=== PATIENT | male | born 1975 | race Caucasian/White ===

== ENCOUNTER 2025-01-20 02:25 | Inpatient (IN) | payer SELFPAY ==
[2025-01-20] VITALS (20 sets, daily range): BP systolic 95–137; BP diastolic 70–103; PULSE 79–140; RESP 20–24; TEMP 36.3–37.1; O2SAT 94–98; BMI 39.4; BMI 39.5
--- NOTE | 2025-01-20 | ECHO_ITS ---
Patient Info Name: Rangel Ulrich Age: 49 years : 1975 Gender: Male Ht: 72 in Wt: 291 lbs BSA: 2.64 m2 HR: 95 bpm BP: 121 / 97 mmHg Heart Rhythm: Atrial Fibrillation Technical Quality: Poor Exam Date: 01/20/2025 12:02 PM Exam Location: Echo Lab Patient Status: Outpatient Admit Date: 01/20/2025 Staff Ordering Physician: Emile Monaco MD Cutter Brake Lining: Joseph Agustin RDCS Attending Provider: Ericka Soliz MD Exam Type: CA echo dop color flow w con Study Info Indications - CHEST PRESSURE Complete two-dimensional, color flow and Doppler transthoracic echocardiogram is performed with contrast to opacify the left ventricle and to improve the deliniation of the left ventricle endocardial borders. Contrast/Agitated Saline Contrast/Ag. Saline: Definity Amount: 2.00 ml Existing IV Access: Yes Reason for Poor Study: poor echocardiographic windows Summary 1. Definity contrast administered improved wall motion interpretation. 2. Left ventricular chamber dimension is severely enlarged. 3. Left ventricular systolic function is severely reduced, estimated at 20-25%. 4. There is mild concentric increased left ventricular wall thickness. 5. The left ventricular diastolic function is abnormal. 6. E/e' 11 is mildly elevated. 7. Atrial fibrillation. 8. Right ventricular chamber dimension is moderately enlarged. 9. Right ventricular systolic function is at least moderately reduced and with abnormal TAPSE 1.1 cm.. 10. Left atrial chamber dimension is moderately enlarged. 11. Right atrial chamber dimension is mildly enlarged. 12. There is mild to moderate mitral valve regurgitation. 13. Mild pulmonary hypertension, estimated pulmonary arterial systolic pressure is 46 mmHg. 14. The aortic root size at the sinus of Valsalva is borderline dilated at 4.1 cm. 15. Dilated inferior vena cava with >50% collapse upon inspiration consistent with elevated right atrial pressure, 10 mmHg. Left Ventricle E/e' 11 is mildly elevated. Atrial fibrillation. Definity contrast administered improved wall motion interpretation. Left ventricular chamber dimension is severely enlarged. Left ventricular systolic function is severely reduced, estimated at 20-25%. There is mild concentric increased left ventricular wall thickness. The left ventricular diastolic function is abnormal. Right Ventricle Right ventricular systolic function is at least moderately reduced and with abnormal TAPSE 1.1 cm. Right ventricular chamber dimension is moderately enlarged. Left Atria Left atrial chamber dimension is moderately enlarged. Right Atria Right atrial chamber dimension is mildly enlarged. Aortic Valve The aortic valve is probable trileaflet. There is no aortic valve stenosis. There is no aortic valve regurgitation. Pulmonic Valve There is no pulmonic regurgitation. Mitral Valve There is no mitral valve stenosis. There is mild to moderate mitral valve regurgitation. Tricuspid Valve There is no tricuspid valve regurgitation. Mild pulmonary hypertension, estimated pulmonary arterial systolic pressure is 46 mmHg. Pericardium/Pleural There is no pericardial effusion. Inferior Vena Cava Dilated inferior vena cava with >50% collapse upon inspiration consistent with elevated right atrial pressure, 10 mmHg. Aorta The aortic root size at the sinus of Valsalva is borderline dilated at 4.1 cm. Left Ventricular Outflow Tract Name Value Normal LVOT 2D LVOT Diameter 2.37 cm LVOT Doppler LVOT Peak Velocity 87.33 cm/s LVOT Peak Gradient 1 mmHg LVOT Mean Gradient 0 mmHg LVOT VTI 14.81 cm LVOT VTI/AV VTI Ratio 0.71 LVOT Stroke Volume 65.52 ml LVOT CO 1.50 l/min LVOT CI 0.57 L/min/m2 Pulmonic Valve Name Value Normal RVOT Doppler RVOT Peak Gradient 1 mmHg PV Doppler PV Peak Velocity 51.14 cm/s PV Peak Gradient 1 mmHg Mitral Valve Name Value Normal MV Doppler MV Peak Gradient 4 mmHg MV Mean Gradient 2 mmHg MV Decel Allen 826.18 cm/s2 MV PHT 0 s MV Area (PHT) 6.04 cm2 4.00-5.00 MV Area (Cont Eq VTI) 2.18 cm2 MV Diastolic Function MV E Peak Velocity 103.77 cm/s MV Decel Time 0 s MV Annular TDI MV Septal e' Velocity 6.38 cm/s >=8.00 MV E/e' (Septal) 16.26 <=8.00 MV Lateral e' Velocity 11.06 cm/s >=10.00 MV E/e' (Lateral) 9.38 <=8.00 MV e' Average 8.72 MV E/e' (Average) 12.82 Tricuspid Valve Name Value Normal TV Regurgitation Doppler TR Peak Velocity 301.11 cm/s TR Peak Gradient 36 mmHg Estimated PAP/RSVP RA Pressure 10 mmHg <=5 PA Systolic Pressure 46 mmHg <36 RV Systolic Pressure 46 mmHg <36 TV Annular TDI TV Lateral Mattie s' Velocity 5.74 cm/s 9.50-18.70 Aorta Name Value Normal Ascending Aorta Ao Root Diameter (MM) 4.44 cm Ao Root Diam Index (MM) 1.68 cm/m2 Ao [place] Diameter 2.95 cm 2.60-3.20 Aortic Valve Name Value Normal AV Doppler AV Peak Velocity 124.66 cm/s AV Peak Gradient 6 mmHg AV Mean Gradient 4 mmHg AV VTI 20.83 cm AV Area (Cont Eq VTI) 3.15 cm2 >=3.00 AV Area (Cont Eq Eric) 3.10 cm2 AV V1/V2 Ratio 0.70 AV Regurgitation 2D LVOT Area 4.42 cm2 Ventricles Name Value Normal LV Dimensions 2D/MM IVS Diastolic Thickness (2D) 1.40 cm 0.60-1.00 LVID Diastole (2D) 5.81 cm 4.20-5.80 LVIW Diastolic Thickness (2D) 1.57 cm 0.60-1.00 LVID Systole (2D) 5.22 cm 2.50-4.00 LVOT Diameter 2.37 cm LV Mass (2D Cubed) 400.51 g 88.00-224.00 LV Mass Index (2D Cubed) 0.02 g/cm2 0.00-0.01 Relative Wall Thickness (2D) 0.54 LV Fractional Shortening/Ejection Fraction 2D/MM LV Fractional Shortening (2D) 10 % 25-43 LV EF (2D Teicholz) 22 % 52-72 LV Diastolic Volume (4C MOD) 177.48 ml LV EF (4C MOD) 42 % LV Diastolic Volume (2C MOD) 166.74 ml LV EF (2C MOD) 33 % LV Diastolic Volume (BP MOD) 176.14 ml 62.00-150.00 LV Diastolic Volume Index (BP MOD) 0.07 l/m2 0.03-0.07 LV Systolic Volume (BP MOD) 107.94 ml 21.00-61.00 LV Systolic Volume Index (BP MOD) 0.04 l/m2 0.01-0.03 LV EF (BP MOD) 39 % 52-72 LV Diastolic Length (4C) 9.01 cm LV Systolic Length (4C) 7.79 cm LV Stroke Volume (4C MOD) 73.86 ml Atria Name Value Normal LA Dimensions LA Dimension (MM) 5.43 cm 3.00-4.10 LA Volume (4C A-L) 79.66 ml LA Volume (BP A-L) 105.98 ml RA Dimensions RA Area (4C) 30.99 cm2 <=18.00 Report Signatures
--- NOTE | ~2025-01-20 | XR_ITS ---
EXAMINATION: XR chest 1V portable DATE: 01/21/2025 12:57 INDICATION: Shortness of breath and chest pain TECHNIQUE: frontal view of the chest was obtained. COMPARISON: Chest radiograph dated 01/20/2025 FINDINGS: The lungs are clear with no focal airspace opacities, pulmonary edema, pleural effusion or pneumothor ax. Borderline heart size accounting for AP technique. IMPRESSION: 1. No acute cardiopulmonary disease. 2. Borderline heart size accounting for AP technique. Reviewed, dictated and finalized at location A. DISCHARGE
--- NOTE | ~2025-01-20 | XR_ITS ---
Portable chest x-ray Comparison: None Clinical History: Cough Findings: Lungs are clear, without focal consolidation or pleural effusion. Cardiomediastinal silho uette is prominent. Bones and soft tissues are unremarkable. Impression: Clear lungs. Probable cardiomegaly. Reviewed, dictated and finalized at [facility]. MILL SET UP OPERATOR Impression: Clear lungs. Probable cardiomegaly.
[2025-01-20] MEDS: dilTIAZem HCl INJ 25 MG/5 ML VIAL 20 MG IV PUSH (03:40)
[2025-01-20] MEDS: dilTIAZem 100 MG/100 ML 100 MG/100 ML BAG IV CONT (03:40)
[2025-01-20 05:16] LABS: INR 1.3; Partial Thromboplastin Time 31.4 Seconds (22.3-36.8); Prothrombin Time 16.2 Seconds (11.1-14.7)
[2025-01-20 05:17] LABS: Alanine Aminotransferase 39 U/L (6-50); Albumin Level 4.2 g/dL (3.5-5.1); Alkaline Phosphatase 65 U/L (38-126); Anion Gap 12 mmol/L (4-12); Aspartate Amino Transferase 40 U/L (17-59); Bilirubin,Total 1.8 mg/dL (0.2-1.3); Blood Urea Nitrogen 25 mg/dL (9-20); Calcium 9.3 mg/dL (8.4-10.2); Carbon Dioxide 22 mmol/L (22-30); Chloride 104 mmol/L (98-107); Estimated Glomerular Filt Rate > 60; Glucose 97 mg/dL (65-110); Potassium 4.3 mmol/L (3.4-5.0); Sodium 138 mmol/L (137-145); Troponin I 0.013 ng/mL (0.000-0.034)
[2025-01-20 05:23] LABS: Influenza A QL RT-PCR Negative (Negative); Influenza B QL RT-PCR Negative (Negative); RSV RNA, RT-PCR Negative (Negative); SARS-CoV-2 RNA PCR Negative (Negative)
[2025-01-20 05:24] LABS: Bacteria Urine None Seen /hpf; Mucus Urine Present /lpf; Need Manual Microscopic Reviewed; Non Pathogenic Casts 0-2; RBC Urine 0-2 /hpf (0-2); Squamous Epithelial Cell Urine None Seen /hpf (Few); WBC Urine 0-5 /hpf (0-3)
[2025-01-20 05:25] LABS: Add Urine Microscopic? YES
[2025-01-20 05:26] LABS: Appearance Urine Clear (Clear); Bilirubin Urine 1+ (Negative); Blood Urine Negative (Negative); Color Urine Yellow (Yellow); Glucose Urine UA Negative (Negative); Ketones Urine Negative (Negative); Leukocyte Esterase Ur Negative LEU/UL (Negative); Nitrate Urine Negative (Negative); Protein Urine 2+ mg/dL (Negative); Specific Grav Ur >= 1.030 (1.001-1.035); pH Urine 5.5 (5.0-9.0)
[2025-01-20 05:27] LABS: Basophils Percent Auto 0.4 % (0.2-1.2); Eosinophils Percent Auto 0.2 % (0-4.4); Hematocrit 43.2 % (42.0-52.0); Hemoglobin 14.2 g/dL (14.0-18.0); Immature Granulocyte Absolute 0.02 K/mm3 (0.00-0.031); Immature Granulocyte Percent A 0.2 % (0-0.5); Lymphocytes Absolute Auto 2.17 K/mm3 (0.9-3.2); Lymphocytes Percent Auto 22.8 % (18.3-44.2); Mean Corpuscular HGB Conc 32.9 g/dl (32-36); Mean Corpuscular Hemoglobin 30.3 pg (26-34); Mean Corpuscular Volume 92.3 fl (80-100); Mean Platelet Volume 10.3 fl (7.4-10.4); Monocytes Percent Auto 10.9 % (2.6-8.5); Neutrophils Absolute Auto 6.2 K/mm3 (1.3-6.7); Neutrophils Percent Auto 65.5 % (45.5-73.1); Platelet Count Result 252 k/mm3 (150-375); Red Blood Count 4.68 M/mm3 (4.6-6.20); Red Cell Distribution Width 13.8 % (11.5-14.5); White Blood Count 9.5 K/mm3 (4.5-10.0)
--- NOTE | 2025-01-20 06:42 | ADMGEN ---
This patient, Rangel Ulrich, was admitted to IMU Room 206-02. Patient/family oriented to hospital policies and general routines including ID bracelet, bed and alarms, visiting hours, pain management, procedures, bathroom and other care routines, personal items, smoking policy, room service/diet, and visiting hours. Information on how to activate the Rapid Response Team has been discussed. Patient/Family are encouraged to report perceived risks to care and to ask questions if they do not understand what they are told or what they should do.
[2025-01-20] MEDS: dilTIAZem 100 MG/100 ML 100 MG/100 ML BAG 15 MG IV CONT (10:35)
--- NOTE | 2025-01-20 11:10 | ECG_ITS ---
Test Date: 2025-01-20 11:28:03 Measurements Intervals [place] Rate: 93 P: 0 VT: 0 QRS: -63 QRSD: 109 T: 153 QT: 391 QTc: 486 Interpretive Statements ATRIAL FIBRILLATION LEFT ANTERIOR FASCICULAR BLOCK BORDERLINE T WAVE ABNORMALITY- DIFFUSE LEADS BASELINE ARTIFACT- V4-V5 ABNORMAL ECG No previous ECG available for comparison Electronically Signed On 01-20-2025 11:31:33 [employer]CHO[employer] CHILD CARE ATTENDANT by Ranjit Mackey D.O.
[2025-01-20 11:35] LABS: Hematocrit 42.3 % (42.0-52.0); Hemoglobin 13.8 g/dL (14.0-18.0); Mean Corpuscular HGB Conc 32.6 g/dl (32-36); Mean Corpuscular Hemoglobin 30.1 pg (26-34); Mean Corpuscular Volume 92.2 fl (80-100); Mean Platelet Volume 10.3 fl (7.4-10.4); Platelet Count Result 238 k/mm3 (150-375); Red Blood Count 4.59 M/mm3 (4.6-6.20); Red Cell Distribution Width 13.8 % (11.5-14.5)
[2025-01-20 11:52] LABS: Hemoglobin A1C 5.8 % (<5.7)
[2025-01-20 11:52] LABS: Alanine Aminotransferase 36 U/L (6-50); Albumin Level 3.7 g/dL (3.5-5.1); Alkaline Phosphatase 60 U/L (38-126); Anion Gap 9 mmol/L (4-12); Aspartate Amino Transferase 37 U/L (17-59); Bilirubin,Total 1.6 mg/dL (0.2-1.3); Blood Urea Nitrogen 26 mg/dL (9-20); Calcium 8.8 mg/dL (8.4-10.2); Carbon Dioxide 21 mmol/L (22-30); Chloride 106 mmol/L (98-107); Cholesterol 113 mg/dL (0-200); Estimated CRCL calculation 118 ml/min; Estimated Glomerular Filt Rate > 60; Glucose 117 mg/dL (65-110); HDL Direct 23 mg/dL; Magnesium 2.1 mg/dL (1.6-2.3); Phosphorus 3.2 mg/dL (2.5-4.5); Potassium 4.3 mmol/L (3.4-5.0); Sodium 136 mmol/L (137-145); Triglycerides 105 mg/dL (<150)
[2025-01-20 12:01] LABS: Troponin I 0.012 ng/mL (0.000-0.034)
[2025-01-20 12:03] LABS: LDL Cholesterol Direct 73 mg/dL
--- NOTE | 2025-01-20 12:31 | PM.CNCAR ---
Assessment and Plan Assessment and plan (1) PAF (paroxysmal atrial fibrillation): Code(s): I48.0 - Paroxysmal atrial fibrillation Status: Acute Assessment and Plan: New onset. Probably due to untreated JOSEPH and hypertension. [id number] 1. Rate controlled on Diltiazem. Start Aspirin 325 mg daily. Stop Diltiazem drip and start Diltiazem 60 mg PO every 6 hours. Obtain echo. If HR stable, may go home and f/u with me in 1 week. (2) Hypertension: Code(s): I10 - Essential (primary) hypertension Status: Acute Assessment and Plan: Going on Diltiazem. (3) JOSEPH (obstructive sleep apnea): Code(s): G47.33 - Obstructive sleep apnea (adult) (pediatric) Status: Acute Assessment and Plan: Will need outpatient sleep study. History of Present Illness History of Present Illness Consult date/time: 01/20/25 12:31 Reason For Visit: SOB Narrative: 49 yr old presents to ER with sob. He has a history of untreated JOSEPH from 12 years ago, hypertension. Reports he noted about 7-10 days ago feeling more sob and weak. He was found to be in atrial fibrillation with RVR. Normally he can walk a mile but recently only short distances due to OSMAN. Denies chest pain, edema, dizziness, palpitations. Review of Systems Review of Systems: All systems reviewed & are unremarkable except as noted in HPI and below Constitutional: Constitutional: Reports as per HPI, Denies chills, Reports fatigue and Denies fever(s) Cardiovascular: Cardiovascular: Reports as per HPI, Denies chest pain and Denies irregular heart rhythm Respiratory: Respiratory: Reports as per HPI and Reports dyspnea Gastrointestinal: Gastrointestinal: Reports as per HPI and Denies abdominal pain Genitourinary: Genitourinary: Reports as per HPI and Denies dysuria Musculoskeletal: Musculoskeletal: Reports as per HPI Neurologic: Reports as per HPI, Denies dizziness and Denies syncope COUNTS INCLUDE 234 BEDS AT THE [facility] Social History Social History Smoking status: Never smoker Alcohol intake: never Substance use: never Substance use type: does not use Do You Feel Safe in your Home?: Yes Lack of Transportation: No Lack of Food: Never True Current Housing: I Have Housing Concerned About Future Housing: No Difficulty Paying Gas/Electric Bills: No Difficulty Paying for Meds: No Currently Unemployed: No Education: High School Diploma/GED Difficulty w/ Childcare or Family Care: No Spiritual care concerns: No Meds Home Medications and Allergies Home Medications ?Medication ?Instructions ?Recorded ?Confirmed ?Type No Home Medications 01/20/25 01/20/25 History Allergies Allergy/AdvReac Type Severity Reaction Status Date / Time No Known Allergies Allergy Verified 01/20/25 05:54 Vital Signs Vital Signs - 24 hr 01/20/25 03:40 01/20/25 04:10 01/20/25 05:27 Temperature Pulse Rate 140 H 122 H 115 H Respiratory Rate Blood Pressure 134/101 H 137/99 H 121/103 H Pulse Oximetry Oxygen Delivery 01/20/25 05:30 01/20/25 05:31 01/20/25 05:41 Temperature 98.8 F Pulse Rate 127 H 110 H Respiratory Rate 20 Blood Pressure 123/97 H Pulse Oximetry 97 97 Oxygen Delivery Room Air Room Air 01/20/25 06:37 01/20/25 07:52 01/20/25 10:35 Temperature 97.4 F L 97.5 F L Pulse Rate 99 95 84 Respiratory Rate 20 24 H Blood Pressure 102/84 121/97 H Pulse Oximetry 94 95 Oxygen Delivery 01/20/25 12:00 Temperature 97.4 F L Pulse Rate 101 H Respiratory Rate 20 Blood Pressure 109/91 H Pulse Oximetry 95 Oxygen Delivery Results Labs and Meds 01/20/25 11:26 01/20/25 11:26 Lab results: Cardiac Enzymes 01/20/25 01/20/25 Range/Units 02:18 11:26 AST 40 37 (17-59) U/L Troponin I 0.013 0.012 (0.000-0.034) ng/mL Coagulation 01/20/25 Range/Units 02:18 PT 16.2 H (11.1-14.7) Seconds APTT 31.4 (22.3-36.8) Seconds Lipids 01/20/25 Range/Units 11:26 Triglycerides 105 (<150) mg/dL Cholesterol 113 (0-200) mg/dL CBC 01/20/25 01/20/25 Range/Units 02:18 11:26 WBC 9.5 9.0 (4.5-10.0) K/mm3 RBC 4.68 4.59 L (4.6-6.20) M/mm3 Hgb 14.2 13.8 L (14.0-18.0) g/dL Hct 43.2 42.3 (42.0-52.0) % Plt Count 252 238 (150-375) k/mm3 Lymph # (Auto) 2.17 (0.9-3.2) K/mm3 [place] # (Auto) 1.0 H (0.1-0.6) K/mm3 Eos # (Auto) 0.0 (0-0.3) K/mm3 Baso # (Auto) 0.0 (0.0-0.1) K/mm3 Comprehensive Metabolic Panel 01/20/25 01/20/25 Range/Units 02:18 11:26 Sodium 138 136 L (137-145) mmol/L Potassium 4.3 4.3 (3.4-5.0) mmol/L Chloride 104 106 (98-107) mmol/L Carbon Dioxide 22 21 L (22-30) mmol/L BUN 25 H 26 H (9-20) mg/dL Creatinine 1.12 0.94 (0.7-1.3) mg/dL Glucose 97 117 H (65-110) mg/dL Calcium 9.3 8.8 (8.4-10.2) mg/dL AST 40 37 (17-59) U/L ALT 39 36 (6-50) U/L Alkaline Phosphatase 65 60 (38-126) U/L Total Protein 7.0 7.0 (6.3-8.2) g/dL Albumin 4.2 3.7 (3.5-5.1) g/dL Intake and Output 01/19/25 01/20/25 01/20/25 23:59 07:59 15:59 Intake Total 15.3 360 Balance 15.3 360 Intake: IV 15.3 dilTIAZem 100 MG/100 ML 100 mg 15.3 In 100 ml @ 5 MG/HR 5 mls/hr IV CONT .Q20H STA Rx#:[id number] Oral 360 Patient Weight 01/20/25 23:59 Weight 132 kg
[2025-01-20] MEDS: PERFLUTREN LIPID MICROSPHERES 1.5 ML VIAL DILUTED TO 10 ML TOTAL VOLUME IV PUSH (12:35)
[2025-01-20] MEDS: ASPIRIN 325 MG ENTERIC TABLET PO (12:52)
--- NOTE | 2025-01-20 13:00 | IVDEFINITY ---
Prior to administration of IV Definity the patient was educated on the risks and benefits of the imaging enhancing agent including potential adverse side effects. The patient verbalized understanding. Allergies were verified. No exclusion criteria were identified and at least one of the following inclusion criteria were met: 1) physician request, 2) patient technically difficult to image (per the [place] [employer]chocardi[employer] guidelines of two or more segments not discernable within the apical view), or 3) questionable left ventricular function. ?
--- NOTE | 2025-01-20 13:17 | PM.IMHP ---
H&P: HPI History of Present Illness Date/Time: 01/20/25 13:17 Chief Complaint: Chest congestion Narrative: Patient is a 49-year-old male with no significant past medical history is admitted due to chest congestion and pressure for past it few weeks. Patient reported yearly morning he woke up and was not able to breathe. Patient does not clearly denies any history of anxiety although it never been diagnosed. He reports the chest congestion, cough and bringing up sputum sometime. Patient denies any drug abuse or alcohol. His last doctor visit attended 2 years ago. Patient endorse shortness of breath while walking and sometimes even at rest. Patient works at a warehouse. Patient has JOSEPH but denies using CPAP. Patient denies any history of AFib. Patient was admitted in the ED due to chest pain but there was no elevation of troponin. EKG shows shows left anterior fascicular block with new onset of AFib. Patient was started on Cardizem drip and was admitted to IMU. Pertinent ED lab: WBC 9, hemoglobin 13.8, platelet 238, sodium 136, potassium 4.3, creatinine 0.94, BUN 26, bilirubin 1.6 Troponin negative Chest x-ray possible cardiomegaly Patient is admitted in the setting of new onset of AFib,And cardiomegaly. Echo ordered and Cardiology was consulted. Patient Cardizem drip has been stopped and started on diltiazem 30 mg p.o. q.6 hours, Entresto, empagliflozin, rivaroxaban and metoprolol 25 mg p.o. q.6 hours. Patient HbA1c 5.8. Ordered lipid panel. Will discuss with Cardiology after the echo results for continuation of diltiazem. Review of Systems Review of Systems: All systems reviewed & are unremarkable except as noted in HPI and below Constitutional: Constitutional: Reports as per HPI, Denies chills, Reports fatigue and Denies fever(s) ENT: Denies dizziness Cardiovascular: Cardiovascular: Reports as per HPI, Denies chest pain, Denies syncope, Denies irregular heart rhythm and Reports dyspnea Respiratory: Respiratory: Reports as per HPI and Reports dyspnea Gastrointestinal: Gastrointestinal: Reports as per HPI and Denies abdominal pain Genitourinary: Genitourinary: Reports as per HPI and Denies dysuria Musculoskeletal: Musculoskeletal: Reports as per HPI Neurologic: Reports as per HPI, Denies dizziness and Denies syncope Endocrine: Endocrine: Reports fatigue [facility] Social History Social History Smoking status: Never smoker Alcohol intake: never Substance use: never Substance use type: does not use Do You Feel Safe in your Home?: Yes Lack of Transportation: No Lack of Food: Never True Current Housing: I Have Housing Concerned About Future Housing: No Difficulty Paying Gas/Electric Bills: No Difficulty Paying for Meds: No Currently Unemployed: No Education: High School Diploma/GED Difficulty w/ Childcare or Family Care: No Spiritual care concerns: No Meds Home Medications and Allergies Home Medications ?Medication ?Instructions ?Recorded ?Confirmed ?Type No Home Medications 01/20/25 01/20/25 History Allergies Allergy/AdvReac Type Severity Reaction Status Date / Time No Known Allergies Allergy Verified 01/20/25 05:54 Vital Signs Vital Signs - 24 hr 01/20/25 03:40 01/20/25 04:10 01/20/25 05:27 Temperature Pulse Rate 140 H 122 H 115 H Respiratory Rate Blood Pressure 134/101 H 137/99 H 121/103 H Pulse Oximetry Oxygen Delivery 01/20/25 05:30 01/20/25 05:31 01/20/25 05:41 Temperature 98.8 F Pulse Rate 127 H 110 H Respiratory Rate 20 Blood Pressure 123/97 H Pulse Oximetry 97 97 Oxygen Delivery Room Air Room Air 01/20/25 06:37 01/20/25 07:52 01/20/25 10:35 Temperature 97.4 F L 97.5 F L Pulse Rate 99 95 84 Respiratory Rate 20 24 H Blood Pressure 102/84 121/97 H Pulse Oximetry 94 95 Oxygen Delivery 01/20/25 12:00 Temperature 97.4 F L Pulse Rate 101 H Respiratory Rate 20 Blood Pressure 109/91 H Pulse Oximetry 95 Oxygen Delivery H&P: Results Labs Labs: Short CBC 01/20/25 01/20/25 Range/Units 02:18 11:26 WBC 9.5 9.0 (4.5-10.0) K/mm3 Hgb 14.2 13.8 L (14.0-18.0) g/dL Hct 43.2 42.3 (42.0-52.0) % Plt Count 252 238 (150-375) k/mm3 BMP 01/20/25 01/20/25 02:18 11:26 Sodium 138 136 L Potassium 4.3 4.3 Chloride 104 106 Carbon Dioxide 22 21 L BUN 25 H 26 H Creatinine 1.12 0.94 Glucose 97 117 H Calcium 9.3 8.8 Cardiac Enzymes 01/20/25 01/20/25 Range/Units 02:18 11:26 Troponin I 0.013 0.012 (0.000-0.034) ng/mL Liver Function 01/20/25 01/20/25 Range/Units 02:18 11:26 Total Bilirubin 1.8 H 1.6 H (0.2-1.3) mg/dL AST 40 37 (17-59) U/L ALT 39 36 (6-50) U/L Alkaline Phosphatase 65 60 (38-126) U/L Albumin 4.2 3.7 (3.5-5.1) g/dL Urine 01/20/25 Range/Units 03:39 Urine Color Yellow (Yellow) Urine Appearance Clear (Clear) Urine pH 5.5 (5.0-9.0) Ur Specific [place] >= 1.030 (1.001-1.035) Urine Protein 2+ H (Negative) mg/dL Urine Glucose (UA) Negative (Negative) mg/dL Assessment and Plan Assessment and plan (1) PAF (paroxysmal atrial fibrillation): Code(s): I48.0 - Paroxysmal atrial fibrillation Status: Acute Assessment and Plan: New onset. Order TSH Denies alcoholism Probably due to untreated JOSEPH and hypertension. [id number] 1 and started Xarelto 20 mg p.o. q.d. Start Aspirin 325 mg daily. Stop Diltiazem drip and start Diltiazem 60 mg PO every 6 hours. Obtain echo. (2) Hypertension: Code(s): I10 - Essential (primary) hypertension Status: Acute Assessment and Plan: On metoprolol and diltiazem (3) JOSEPH (obstructive sleep apnea): Code(s): G47.33 - Obstructive sleep apnea (adult) (pediatric) Status: Acute Assessment and Plan: Will need outpatient sleep study. Quality VTE Prophylaxis VTE prophylaxis: pharmacologic ordered Hospitalist MIPS Advance Care Plan I have confirmed that the patient's Advanced Care Plan is present, code status is documented, or surrogate decision maker is listed in patient medical record.: Yes Medication Reconciliation I have utilized all available resources to obtain, update and review the patients current medications (includes all prescriptions, OTC, herbals, cannabis, and nutritional supplements).: Yes
[2025-01-20] MEDS: EMPAGLIFLOZIN 10 MG TABLET PO (13:32)
--- NOTE | 2025-01-20 14:04 | PC.NURSE ---
On 01/20/25, the student, [Nora Augustine], provided care and [facility]. I have reviewed the student's documentation and agree with the findings.
[2025-01-20 15:49] LABS: Troponin I 0.024 ng/mL (0.000-0.034)
[2025-01-20] MEDS: METOPROLOL TARTRATE 25 MG TABLET PO (17:04)
[2025-01-20] MEDS: RIVAROXABAN 20 MG TABLET PO (17:04)
[2025-01-20] MEDS: dilTIAZem HCL 30 MG TABLET PO (17:05)
[2025-01-20] MEDS: SACUBITRIL/VALSARTAN 24-26 MG TABLET 1 TAB PO (21:02)
[2025-01-21] VITALS (21 sets, daily range): BP systolic 73–110; BP diastolic 49–89; PULSE 87–113; RESP 18–24; TEMP 36.4–37; O2SAT 92–99
[2025-01-21] MEDS: dilTIAZem HCL 30 MG TABLET PO ×2 (01:06→06:31)
[2025-01-21] MEDS: METOPROLOL TARTRATE 25 MG TABLET PO ×2 (01:06→06:32)
[2025-01-21 05:36] LABS: Hematocrit 42.8 % (42.0-52.0); Hemoglobin 14.3 g/dL (14.0-18.0); Mean Corpuscular HGB Conc 33.4 g/dl (32-36); Mean Corpuscular Hemoglobin 30.4 pg (26-34); Mean Corpuscular Volume 91.1 fl (80-100); Mean Platelet Volume 10.7 fl (7.4-10.4); Platelet Count Result 250 k/mm3 (150-375); Red Cell Distribution Width 13.7 % (11.5-14.5)
[2025-01-21 05:50] LABS: Alanine Aminotransferase 44 U/L (6-50); Albumin Level 3.5 g/dL (3.5-5.1); Alkaline Phosphatase 67 U/L (38-126); Anion Gap 11 mmol/L (4-12); Aspartate Amino Transferase 52 U/L (17-59); Bilirubin,Total 1.9 mg/dL (0.2-1.3); Blood Urea Nitrogen 20 mg/dL (9-20); Calcium 8.5 mg/dL (8.4-10.2); Carbon Dioxide 19 mmol/L (22-30); Chloride 107 mmol/L (98-107); Estimated CRCL calculation 134 ml/min; Estimated Glomerular Filt Rate > 60; Glucose 99 mg/dL (65-110); Potassium 3.9 mmol/L (3.4-5.0); Sodium 137 mmol/L (137-145)
[2025-01-21] MEDS: SACUBITRIL/VALSARTAN 24-26 MG TABLET 1 TAB PO (08:40)
[2025-01-21] MEDS: EMPAGLIFLOZIN 10 MG TABLET PO (08:40)
--- NOTE | 2025-01-21 08:43 | P.PNCA_ITS ---
Progress Note: A&P Assessment and Plan (1) PAF (paroxysmal atrial fibrillation): Code(s): I48.0 - Paroxysmal atrial fibrillation Status: Acute Assessment and Plan: New onset. Probably due to untreated JOSEPH and hypertension. [id number] 2. On Xarelto. Rate control on Diltiazem and Metoprolol. Stop Diltiazem due to low normal BP. Increase Metoprolol 50 mg every 6 hours with parameters and start Digoxin 125 mcg daily to improve HR control. If hemodynamics stable by tomorrow he may go home and f/u with me in 1 week. (2) Hypertension: Code(s): I10 - Essential (primary) hypertension Status: Acute Assessment and Plan: Low normal. (3) JOSEPH (obstructive sleep apnea): Code(s): G47.33 - Obstructive sleep apnea (adult) (pediatric) Status: Acute Assessment and Plan: Will need outpatient sleep study. 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 Started Metoprolol and Entresto and Jardiance. Discuss Life Vest and will place order, and he is unsure if he wants it. Subjective Date/time seen: 01/21/25 08:43 Interval history: Denies chest pain. States breathing is better. Exam Const: General: cooperative, healthy appearing and comfortable Resp: Auscultation: clear to auscultation bilaterally, no crackles, no rales, no rhonchi and no wheezes Cardio: Rate: tachycardic Rhythm: abnormal rhythm Heart sounds: no murmurs Peripheral pulses: dorsalis pedis present GI: GI Palp: No abdominal tenderness and Yes Soft to palpation Neuro: General: oriented to person, oriented to place and oriented to time Extrem: Right lower extremity: no edema Left lower extremity: no edema Objective Data Vital Signs Vital Signs: Vital Signs - 24 hr 01/20/25 10:00 01/20/25 10:35 01/20/25 12:00 Temperature 97.4 F L Pulse Rate 84 84 101 H Respiratory Rate 20 Blood Pressure 109/91 H Pulse Oximetry 95 Oxygen Delivery Oxygen Flow Rate 01/20/25 12:00 01/20/25 14:00 01/20/25 15:56 Temperature 97.8 F Pulse Rate 89 98 95 Respiratory Rate 20 Blood Pressure 112/84 Pulse Oximetry 95 Oxygen Delivery Oxygen Flow Rate 01/20/25 16:00 01/20/25 17:04 01/20/25 18:00 Temperature Pulse Rate 102 H 109 H 116 H Respiratory Rate Blood Pressure Pulse Oximetry Oxygen Delivery Oxygen Flow Rate 01/20/25 20:00 01/20/25 20:00 01/20/25 20:30 Temperature 97.5 F L Pulse Rate 110 H 105 H 110 H Respiratory Rate 20 20 Blood Pressure 95/70 L Pulse Oximetry 97 97 Oxygen Delivery Nasal Cannula Oxygen Flow Rate 2 01/20/25 21:08 01/21/25 00:00 01/21/25 00:00 Temperature 98.2 F Pulse Rate 113 H 113 H Respiratory Rate 18 Blood Pressure 104/89 Pulse Oximetry 98 99 Oxygen Delivery Nasal Cannula Oxygen Flow Rate 2 01/21/25 01:06 01/21/25 04:00 01/21/25 06:25 Temperature Pulse Rate 113 H 99 89 Respiratory Rate Blood Pressure 96/65 L Pulse Oximetry Oxygen Delivery Oxygen Flow Rate 01/21/25 06:28 01/21/25 06:32 01/21/25 08:22 Temperature 98.6 F Pulse Rate 99 95 Respiratory Rate 24 H Blood Pressure 105/74 90/68 L Pulse Oximetry 98 Oxygen Delivery Oxygen Flow Rate Intake/Output Intake/Output: Intake & Output 01/18/25 01/19/25 01/20/25 01/21/25 23:59 23:59 23:59 23:59 Intake Total 615.3 400 Output Total 920 1690 Balance -304.7 -1290 Meds/Results Medications: Active Medications Generic Name Dose Route Start Last Admin Trade Name Freq PRN Reason Stop Dose Admin Diltiazem HCl 30 mg 01/20/25 18:00 01/21/25 06:31 Diltiazem Hcl 30 Mg Tablet PO 30 mg Q6HR ELLEN Administration Empagliflozin 10 mg 01/20/25 13:15 01/21/25 08:40 Empagliflozin 10 Mg Tablet PO 10 mg DAILY ELLEN Administration Metoprolol Tartrate 25 mg 01/20/25 18:00 01/21/25 06:32 Metoprolol Tartrate 25 Mg Tablet PO 25 mg Q6HR ELLEN Administration Rivaroxaban 20 mg 01/20/25 17:00 01/20/25 17:04 Rivaroxaban 20 Mg Tablet PO 20 mg DAILY@1700 [facility] Administration Sacubitril/Valsartan 1 tab 01/20/25 21:00 01/21/25 08:40 Sacubitril/Valsartan 24-26 Mg Tablet PO 1 tab Q12HR ELLEN Administration Radiology Results: ITS Impressions Chest X-Ray 01/20/25 05:27 Impression: Clear lungs. Probable cardiomegaly. Labs Labs: Laboratory Results - last 24 hr 01/20/25 01/20/25 01/20/25 11:26 11:27 15:11 WBC 9.0 RBC 4.59 L Hgb 13.8 L Hct 42.3 MCV 92.2 MCH 30.1 MCHC 32.6 RDW 13.8 Plt Count 238 MPV 10.3 Sodium 136 L Potassium 4.3 Chloride 106 Carbon Dioxide 21 L Anion Gap 9 BUN 26 H Creatinine 0.94 Estim Creat Clear Calc 118 Estimated GFR > 60 Glucose 117 H Hemoglobin A1c 5.8 H Calcium 8.8 Phosphorus 3.2 Magnesium 2.1 Total Bilirubin 1.6 H AST 37 ALT 36 Alkaline Phosphatase 60 Troponin I 0.012 0.024 D Total Protein 7.0 Albumin 3.7 Triglycerides 105 Cholesterol 113 LDL Cholesterol Direct 73 HDL Direct 23 TSH (Reflex) 2.850 01/21/25 04:25 WBC 10.0 RBC 4.70 Hgb 14.3 Hct 42.8 MCV 91.1 MCH 30.4 MCHC 33.4 RDW 13.7 Plt Count 250 MPV 10.7 H Sodium 137 Potassium 3.9 Chloride 107 Carbon Dioxide 19 L Anion Gap 11 BUN 20 Creatinine 0.82 Estim Creat Clear Calc 134 Estimated GFR > 60 Glucose 99 Hemoglobin A1c Calcium 8.5 Phosphorus Magnesium Total Bilirubin 1.9 H AST 52 ALT 44 Alkaline Phosphatase 67 Troponin I Total Protein 7.0 Albumin 3.5 Triglycerides Cholesterol LDL Cholesterol Direct HDL Direct TSH (Reflex)
--- NOTE | 2025-01-21 08:44 | PM.IMPN ---
Progress Note: A&P Assessment and Plan (1) PAF (paroxysmal atrial fibrillation): Code(s): I48.0 - Paroxysmal atrial fibrillation Status: Acute Assessment and Plan: New onset. TSH 2.8 Denies alcoholism Newly diagnosed CHF Untreated JOSEPH and hypertension. [id number] 1 and started Xarelto 20 mg p.o. q.d. Start Aspirin 325 mg daily. Stop Diltiazem drip and Diltiazem 60 mg PO every 6 hours. Started digoxin 125 mcg Reviewed echo ejection fraction 20-25% (2) Hypertension: Code(s): I10 - Essential (primary) hypertension Status: Acute Assessment and Plan: On metoprolol and digoxin (3) JOSEPH (obstructive sleep apnea): Code(s): G47.33 - Obstructive sleep apnea (adult) (pediatric) Status: Acute Assessment and Plan: Will need outpatient sleep study. (4) Heart failure: Code(s): I50.9 - Heart failure, unspecified Status: Acute Assessment and Plan: Newly diagnosed CHF Reviewed echocardiogram, left ventricular ejection fraction 20-25% Started EntrestoZandra BNP 3960 Ordered UDS Subjective Date/time seen: 01/21/25 08:44 Interval history: INTERVAL HISTORY: Patient has a new diagnosis of AFib and CHF. Patient is being currently treated with Xarelto 20 mg p.o. q.d., metoprolol 25 mg p.o. q.6 hours, diltiazem 30 mg p.o. q.6 hours, Entresto and empagliflozin. Discussed with cardiology about continuing diltiazem in the setting of heart failure. As per Cardiology diltiazem has been discontinued and started digoxin. Blood pressure will be monitored and in the event of discharge patient will be given life vest. 01/21: Patient blood pressures on soft side. Advised to hold Entresto. Tomorrow Entresto will be restarted possibly 1/2 dose if patient is able to tolerate. Review of Systems Review of Systems: All systems reviewed & are unremarkable except as noted in HPI and below Constitutional: Constitutional: Reports as per HPI, Denies chills, Reports fatigue and Denies fever(s) ENT: Denies dizziness Cardiovascular: Cardiovascular: Reports as per HPI, Denies chest pain, Denies syncope, Denies irregular heart rhythm and Reports dyspnea Respiratory: Respiratory: Reports as per HPI and Reports dyspnea Gastrointestinal: Gastrointestinal: Reports as per HPI and Denies abdominal pain Genitourinary: Genitourinary: Reports as per HPI and Denies dysuria Musculoskeletal: Musculoskeletal: Reports as per HPI Neurologic: Reports as per HPI, Denies dizziness and Denies syncope Endocrine: Endocrine: Reports fatigue Objective Data Vital Signs Vital Signs: Vital Signs - 24 hr 01/20/25 10:00 01/20/25 10:35 01/20/25 12:00 Temperature 97.4 F L Pulse Rate 84 84 101 H Respiratory Rate 20 Blood Pressure 109/91 H Pulse Oximetry 95 Oxygen Delivery Oxygen Flow Rate 01/20/25 12:00 01/20/25 14:00 01/20/25 15:56 Temperature 97.8 F Pulse Rate 89 98 95 Respiratory Rate 20 Blood Pressure 112/84 Pulse Oximetry 95 Oxygen Delivery Oxygen Flow Rate 01/20/25 16:00 01/20/25 17:04 01/20/25 18:00 Temperature Pulse Rate 102 H 109 H 116 H Respiratory Rate Blood Pressure Pulse Oximetry Oxygen Delivery Oxygen Flow Rate 01/20/25 20:00 01/20/25 20:00 01/20/25 20:30 Temperature 97.5 F L Pulse Rate 110 H 105 H 110 H Respiratory Rate 20 20 Blood Pressure 95/70 L Pulse Oximetry 97 97 Oxygen Delivery Nasal Cannula Oxygen Flow Rate 2 01/20/25 21:08 01/21/25 00:00 01/21/25 00:00 Temperature 98.2 F Pulse Rate 113 H 113 H Respiratory Rate 18 Blood Pressure 104/89 Pulse Oximetry 98 99 Oxygen Delivery Nasal Cannula Oxygen Flow Rate 2 01/21/25 01:06 01/21/25 04:00 01/21/25 06:25 Temperature Pulse Rate 113 H 99 89 Respiratory Rate Blood Pressure 96/65 L Pulse Oximetry Oxygen Delivery Oxygen Flow Rate 01/21/25 06:28 01/21/25 06:32 01/21/25 08:22 Temperature 98.6 F Pulse Rate 99 95 Respiratory Rate 24 H Blood Pressure 105/74 90/68 L Pulse Oximetry 98 Oxygen Delivery Oxygen Flow Rate Intake/Output Intake/Output: Intake & Output 01/18/25 01/19/25 01/20/25 01/21/25 23:59 23:59 23:59 23:59 Intake Total 615.3 400 Output Total 920 1690 Balance -304.7 -1290 Meds/Results Medications: Active Medications Generic Name Dose Route Start Last Admin Trade Name Francesca PRN Reason Stop Dose Admin Diltiazem HCl 30 mg 01/20/25 18:00 01/21/25 06:31 Diltiazem Hcl 30 Mg Tablet PO 30 mg Q6HR ELLEN Administration Empagliflozin 10 mg 01/20/25 13:15 01/21/25 08:40 Empagliflozin 10 Mg Tablet PO 10 mg DAILY ELLEN Administration Metoprolol Tartrate 25 mg 01/20/25 18:00 01/21/25 06:32 Metoprolol Tartrate 25 Mg Tablet PO 25 mg Q6HR ELLEN Administration Rivaroxaban 20 mg 01/20/25 17:00 01/20/25 17:04 Rivaroxaban 20 Mg Tablet PO 20 mg DAILY@1700 ELLEN Administration Sacubitril/Valsartan 1 tab 01/20/25 21:00 01/21/25 08:40 Sacubitril/Valsartan 24-26 Mg Tablet PO 1 tab Q12HR ELLEN Administration Radiology Results: ITS Impressions Chest X-Ray 01/20/25 05:27 Impression: Clear lungs. Probable cardiomegaly. Labs Labs: Laboratory Results - last 24 hr 01/20/25 01/20/25 01/20/25 11:26 11:27 15:11 WBC 9.0 RBC 4.59 L Hgb 13.8 L Hct 42.3 MCV 92.2 MCH 30.1 MCHC 32.6 RDW 13.8 Plt Count 238 MPV 10.3 Sodium 136 L Potassium 4.3 Chloride 106 Carbon Dioxide 21 L Anion Gap 9 BUN 26 H Creatinine 0.94 Estim Creat Clear Calc 118 Estimated GFR > 60 Glucose 117 H Hemoglobin A1c 5.8 H Calcium 8.8 Phosphorus 3.2 Magnesium 2.1 Total Bilirubin 1.6 H AST 37 ALT 36 Alkaline Phosphatase 60 Troponin I 0.012 0.024 D Total Protein 7.0 Albumin 3.7 Triglycerides 105 Cholesterol 113 LDL Cholesterol Direct 73 HDL Direct 23 TSH (Reflex) 2.850 01/21/25 04:25 WBC 10.0 RBC 4.70 Hgb 14.3 Hct 42.8 MCV 91.1 MCH 30.4 MCHC 33.4 RDW 13.7 Plt Count 250 MPV 10.7 H Sodium 137 Potassium 3.9 Chloride 107 Carbon Dioxide 19 L Anion Gap 11 BUN 20 Creatinine 0.82 Estim Creat Clear Calc 134 Estimated GFR > 60 Glucose 99 Hemoglobin A1c Calcium 8.5 Phosphorus Magnesium Total Bilirubin 1.9 H AST 52 ALT 44 Alkaline Phosphatase 67 Troponin I Total Protein 7.0 Albumin 3.5 Triglycerides Cholesterol LDL Cholesterol Direct HDL Direct TSH (Reflex) Quality VTE Prophylaxis VTE prophylaxis: pharmacologic ordered Hospitalist MIPS Advance Care Plan I have confirmed that the patient's Advanced Care Plan is present, code status is documented, or surrogate decision maker is listed in patient medical record.: Yes Medication Reconciliation I have utilized all available resources to obtain, update and review the patients current medications (includes all prescriptions, OTC, herbals, cannabis, and nutritional supplements).: Yes
--- NOTE | 2025-01-21 10:29 | PC.NURSE ---
phoned and spoke with Dr. Mackey to clarify order to give Digoxin this AM after giving Cardizim at 8a. Per Dr. Mackey HR at this time 108 OK to give new order for Digoxin 125mcg. Lolita Burnett RN
[2025-01-21] MEDS: DIGOXIN TAB 125 MCG TABLET PO (11:20)
[2025-01-21] MEDS: METOPROLOL TARTRATE 50 MG TAB PO ×2 (11:21→17:15)
[2025-01-21 13:19] LABS: NT Pro B Type Natriuretic Pept 3960 pg/mL (19.9-100)
[2025-01-21 15:00] LABS: Influenza A QL RT-PCR Negative (Negative); Influenza B QL RT-PCR Negative (Negative); RSV RNA, RT-PCR Negative (Negative); SARS-CoV-2 RNA PCR Negative (Negative)
[2025-01-21] MEDS: RIVAROXABAN 20 MG TABLET PO (17:15)
[2025-01-21 18:21] LABS: Amphetamine Screen Urine Negative (Negative); Barbiturate Screen Urine Negative (Negative); Benzodiazepines Screen Urine Negative (Negative); Cannabinoid Screen Urine Negative (Negative); Cocaine Screen Urine Negative (Negative); Methadone Screen Urine Negative (Negative); Opiate Screen Urine Negative (Negative); Phencyclidine Screen Urine Negative (Negative)
[2025-01-22] VITALS (20 sets, daily range): BP systolic 95–114; BP diastolic 67–86; PULSE 92–128; RESP 18–24; TEMP 36.4–36.8; O2SAT 90–99
[2025-01-22] MEDS: METOPROLOL TARTRATE 50 MG TAB PO ×2 (00:06→06:11)
[2025-01-22 04:22] LABS: Mean Corpuscular HGB Conc 32.6 g/dl (32-36); Mean Corpuscular Hemoglobin 29.5 pg (26-34); Mean Corpuscular Volume 90.7 fl (80-100); Mean Platelet Volume 10.3 fl (7.4-10.4); Platelet Count Result 263 k/mm3 (150-375); Red Blood Count 4.74 M/mm3 (4.6-6.20); Red Cell Distribution Width 13.7 % (11.5-14.5)
[2025-01-22 04:39] LABS: Alanine Aminotransferase 49 U/L (6-50); Albumin Level 3.6 g/dL (3.5-5.1); Alkaline Phosphatase 69 U/L (38-126); Anion Gap 11 mmol/L (4-12); Aspartate Amino Transferase 55 U/L (17-59); Bilirubin,Total 1.4 mg/dL (0.2-1.3); Blood Urea Nitrogen 24 mg/dL (9-20); Calcium 8.7 mg/dL (8.4-10.2); Carbon Dioxide 17 mmol/L (22-30); Chloride 109 mmol/L (98-107); Estimated CRCL calculation 99 ml/min; Estimated Glomerular Filt Rate > 60; Glucose 97 mg/dL (65-110); Potassium 4.5 mmol/L (3.4-5.0); Sodium 137 mmol/L (137-145)
--- NOTE | 2025-01-22 07:48 | PM.IMPN ---
Progress Note: A&P Assessment and Plan (1) PAF (paroxysmal atrial fibrillation): Code(s): I48.0 - Paroxysmal atrial fibrillation Status: Acute Assessment and Plan: New onset. TSH 2.8 Denies alcoholism, drug abuse, excessive caffeine intake Newly diagnosed CHF Untreated JOSEPH and hypertension. [id number] 1 and started Xarelto 20 mg p.o. q.d. Start Aspirin 325 mg daily. Stop Diltiazem drip and Diltiazem 60 mg PO every 6 hours. Started digoxin 125 mcg Reviewed echo ejection fraction 20-25% (2) Hypertension: Code(s): I10 - Essential (primary) hypertension Status: Acute Assessment and Plan: On metoprolol and digoxin (3) JOSEPH (obstructive sleep apnea): Code(s): G47.33 - Obstructive sleep apnea (adult) (pediatric) Status: Acute Assessment and Plan: Will need outpatient sleep study. (4) Heart failure: Code(s): I50.9 - Heart failure, unspecified Status: Acute Assessment and Plan: Newly diagnosed CHF Reviewed echocardiogram, left ventricular ejection fraction 20-25% Started Entresto, Jardiance BNP 3960 UDS negative Continue Metoprolol tartrate 100 mg p.o. b.i.d. and digoxin 125 mcg p.o. q.d. Continue Xarelto 20 mg p.o. q.d. Subjective Date/time seen: 01/22/25 07:48 Interval history: UDS is negative. Decreased his Entresto due to BP intolerance. Will discuss with Cardiology whether patient needs intervention to diagnose the reason for his his low ejection fraction.Discussed with care coordination and patient doesn't have his insurance details. Review of Systems Review of Systems: All systems reviewed & are unremarkable except as noted in HPI and below Constitutional: Constitutional: Reports as per HPI, Denies chills, Reports fatigue and Denies fever(s) ENT: Denies dizziness Cardiovascular: Cardiovascular: Reports as per HPI, Denies chest pain, Denies syncope, Denies irregular heart rhythm and Reports dyspnea Respiratory: Respiratory: Reports as per HPI and Reports dyspnea Gastrointestinal: Gastrointestinal: Reports as per HPI and Denies abdominal pain Genitourinary: Genitourinary: Reports as per HPI and Denies dysuria Musculoskeletal: Musculoskeletal: Reports as per HPI Neurologic: Reports as per HPI, Denies dizziness and Denies syncope Endocrine: Endocrine: Reports fatigue Exam Const: General: cooperative, healthy appearing and comfortable Orientation/consciousness: oriented to person, oriented to place and oriented to time Resp: Auscultation: clear to auscultation bilaterally, no crackles, no rales, no rhonchi and no wheezes Cardio: Rate: tachycardic Rhythm: abnormal rhythm Heart sounds: no murmurs Peripheral pulses: dorsalis pedis present Neuro: General: oriented to person, oriented to place and oriented to time Extrem: Right lower extremity: no edema Left lower extremity: no edema Objective Data Vital Signs Vital Signs: Vital Signs - 24 hr 01/21/25 08:00 01/21/25 08:22 01/21/25 10:00 Temperature 98.6 F Pulse Rate 92 95 99 Respiratory Rate 24 H Blood Pressure 90/68 L Pulse Oximetry 98 Oxygen Delivery 01/21/25 11:20 01/21/25 11:21 01/21/25 12:00 Temperature Pulse Rate 108 H 108 H 88 Respiratory Rate Blood Pressure Pulse Oximetry Oxygen Delivery 01/21/25 12:41 01/21/25 13:53 01/21/25 14:00 Temperature 97.9 F Pulse Rate 87 88 Respiratory Rate 20 Blood Pressure 73/49 L 100/70 Pulse Oximetry 92 Oxygen Delivery 01/21/25 16:00 01/21/25 16:00 01/21/25 16:00 Temperature 97.5 F L Pulse Rate 101 H 100 Respiratory Rate 20 Blood Pressure 110/70 Pulse Oximetry 99 Oxygen Delivery Room Air 01/21/25 17:15 01/21/25 18:00 01/21/25 20:00 Temperature 98.1 F Pulse Rate 109 H 108 H 94 Respiratory Rate 24 H Blood Pressure 99/74 L Pulse Oximetry 96 Oxygen Delivery 01/21/25 20:00 01/21/25 20:30 01/21/25 22:00 Temperature Pulse Rate 96 94 100 Respiratory Rate 24 H Blood Pressure Pulse Oximetry 96 Oxygen Delivery Room Air 01/22/25 00:00 01/22/25 00:00 01/22/25 00:00 Temperature 98.2 F Pulse Rate 105 H 95 105 H Respiratory Rate 24 H 24 H Blood Pressure 97/67 L Pulse Oximetry 99 99 Oxygen Delivery Room Air 01/22/25 00:06 01/22/25 02:00 01/22/25 04:00 Temperature 97.8 F Pulse Rate 108 H 118 H 122 H Respiratory Rate 20 Blood Pressure 99/79 L Pulse Oximetry 96 Oxygen Delivery 01/22/25 04:00 01/22/25 05:20 01/22/25 06:00 Temperature Pulse Rate 110 H 122 H 108 H Respiratory Rate 20 Blood Pressure Pulse Oximetry 96 Oxygen Delivery Room Air 01/22/25 06:11 Temperature Pulse Rate 120 H Respiratory Rate Blood Pressure Pulse Oximetry Oxygen Delivery Intake/Output Intake/Output: Intake & Output 01/19/25 01/20/25 01/21/25 01/22/25 23:59 23:59 23:59 23:59 Intake Total 615.3 1780 600 Output Total 920 2640 400 Balance -304.7 -860 200 Meds/Results Medications: Active Medications Generic Name Dose Route Start Last Admin Trade Name Freq PRN Reason Stop Dose Admin Benzocaine 1 lozenge 01/21/25 12:59 Benzocaine/Menthol (*Bkc) 18 Ea Lozenge PO PRN PRN Sore Throat Digoxin 125 mcg 01/21/25 09:00 01/21/25 11:20 Digoxin Tab 125 Mcg Tablet PO 125 mcg QAM ELLEN Administration Empagliflozin 10 mg 01/20/25 13:15 01/21/25 08:40 Empagliflozin 10 Mg Tablet PO 10 mg DAILY [facility] Administration Metoprolol Tartrate 100 mg 01/22/25 18:00 Metoprolol Tartrate 50 Mg Tab PO Q12H [facility] Rivaroxaban 20 mg 01/20/25 17:00 01/21/25 17:15 Rivaroxaban 20 Mg Tablet PO 20 mg DAILY@1700 [facility] Administration Sacubitril/Valsartan 1 tab 01/22/25 09:00 Sacubitril/Valsartan 12-13 Mg Tablet PO Q12HR [facility] Radiology Results: ITS Impressions Chest X-Ray 01/21/25 13:15 IMPRESSION: 1. No acute cardiopulmonary disease. 2. Borderline heart size accounting for AP technique. Labs Labs: Laboratory Results - last 24 hr 01/21/25 01/21/25 01/21/25 04:24 13:43 17:50 WBC RBC Hgb Hct MCV MCH MCHC RDW Plt Count MPV Sodium Potassium Chloride Carbon Dioxide Anion Gap BUN Creatinine Estim Creat Clear Calc Estimated GFR Glucose Calcium Total Bilirubin AST ALT Alkaline Phosphatase NT-Pro-B Natriuret Pep 3960 H Total Protein Albumin Urine Opiates Screen Negative Urine Methadone Screen Negative Ur Barbiturates Screen Negative Ur Phencyclidine Scrn Negative Ur Amphetamine Screen Negative U Benzodiazepines Scrn Negative Urine Cocaine Screen Negative U Cannabinoids Screen Negative Influenza A (RT-PCR) Negative Influenza B (RT-PCR) Negative RSV (RT-PCR) Negative SARS-CoV-2 RNA (RT-PCR) Negative 01/22/25 04:03 WBC 12.0 H RBC 4.74 Hgb 14.0 Hct 43.0 MCV 90.7 MCH 29.5 MCHC 32.6 RDW 13.7 Plt Count 263 MPV 10.3 Sodium 137 Potassium 4.5 Chloride 109 H Carbon Dioxide 17 L Anion Gap 11 BUN 24 H Creatinine 1.13 Estim Creat Clear Calc 99 Estimated GFR > 60 Glucose 97 Calcium 8.7 Total Bilirubin 1.4 H AST 55 ALT 49 Alkaline Phosphatase 69 NT-Pro-B Natriuret Pep Total Protein 7.0 Albumin 3.6 Urine Opiates Screen Urine Methadone Screen Ur Barbiturates Screen Ur Phencyclidine Scrn Ur Amphetamine Screen U Benzodiazepines Scrn Urine Cocaine Screen U Cannabinoids Screen Influenza A (RT-PCR) Influenza B (RT-PCR) RSV (RT-PCR) SARS-CoV-2 RNA (RT-PCR) Hospitalist MIPS Advance Care Plan I have confirmed that the patient's Advanced Care Plan is present, code status is documented, or surrogate decision maker is listed in patient medical record.: Yes Medication Reconciliation I have utilized all available resources to obtain, update and review the patients current medications (includes all prescriptions, OTC, herbals, cannabis, and nutritional supplements).: Yes
--- NOTE | 2025-01-22 08:17 | PM.PNCARD ---
Progress Note: A&P Assessment and Plan (1) PAF (paroxysmal atrial fibrillation): Code(s): I48.0 - Paroxysmal atrial fibrillation Status: Acute Assessment and Plan: New onset. Probably due to untreated JOSEPH and hypertension. [id number] 2. On Xarelto. Rate control on Diltiazem and Metoprolol. Stopped Diltiazem due to low normal BP. Change Metoprolol 100 mg every 12 hours and on Digoxin 125 mcg daily to improve HR control. (2) Hypertension: Code(s): I10 - Essential (primary) hypertension Status: Acute Assessment and Plan: Stable. (3) JOSEPH (obstructive sleep apnea): Code(s): G47.33 - Obstructive sleep apnea (adult) (pediatric) Status: Acute Assessment and Plan: Will need outpatient sleep study. 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 Started Metoprolol and Entresto and Jardiance. Discuss Life Vest and ordered, but he is unsure if he wants it. After instructed on Life Vest later today, he may d/c home from cardiology standpoint and f/u with me in 1 week. Subjective Date/time seen: 01/22/25 08:17 Interval history: Denies chest pain. States breathing is better. Has hoarse voice. Exam Const: General: cooperative, healthy appearing and comfortable Orientation/consciousness: oriented to person, oriented to place and oriented to time Resp: Auscultation: clear to auscultation bilaterally, no crackles, no rales, no rhonchi and no wheezes Cardio: Rate: regular rate Rhythm: abnormal rhythm Heart sounds: no murmurs Peripheral pulses: dorsalis pedis present Neuro: General: oriented to person, oriented to place and oriented to time Extrem: Right lower extremity: no edema Left lower extremity: no edema Objective Data Vital Signs Vital Signs: Vital Signs - 24 hr 01/21/25 08:22 01/21/25 10:00 01/21/25 11:20 Temperature 98.6 F Pulse Rate 95 99 108 H Respiratory Rate 24 H Blood Pressure 90/68 L Pulse Oximetry 98 Oxygen Delivery 01/21/25 11:21 01/21/25 12:00 01/21/25 12:41 Temperature 97.9 F Pulse Rate 108 H 88 87 Respiratory Rate 20 Blood Pressure 73/49 L Pulse Oximetry 92 Oxygen Delivery 01/21/25 13:53 01/21/25 14:00 01/21/25 16:00 Temperature Pulse Rate 88 Respiratory Rate Blood Pressure 100/70 Pulse Oximetry Oxygen Delivery Room Air 01/21/25 16:00 01/21/25 16:00 01/21/25 17:15 Temperature 97.5 F L Pulse Rate 101 H 100 109 H Respiratory Rate 20 Blood Pressure 110/70 Pulse Oximetry 99 Oxygen Delivery 01/21/25 18:00 01/21/25 20:00 01/21/25 20:00 Temperature 98.1 F Pulse Rate 108 H 94 96 Respiratory Rate 24 H Blood Pressure 99/74 L Pulse Oximetry 96 Oxygen Delivery 01/21/25 20:30 01/21/25 22:00 01/22/25 00:00 Temperature 98.2 F Pulse Rate 94 100 105 H Respiratory Rate 24 H 24 H Blood Pressure 97/67 L Pulse Oximetry 96 99 Oxygen Delivery Room Air 01/22/25 00:00 01/22/25 00:00 01/22/25 00:06 Temperature Pulse Rate 95 105 H 108 H Respiratory Rate 24 H Blood Pressure Pulse Oximetry 99 Oxygen Delivery Room Air 01/22/25 02:00 01/22/25 04:00 01/22/25 04:00 Temperature 97.8 F Pulse Rate 118 H 122 H 110 H Respiratory Rate 20 Blood Pressure 99/79 L Pulse Oximetry 96 Oxygen Delivery 01/22/25 05:20 01/22/25 06:00 01/22/25 06:11 Temperature Pulse Rate 122 H 108 H 120 H Respiratory Rate 20 Blood Pressure Pulse Oximetry 96 Oxygen Delivery Room Air 01/22/25 08:13 Temperature 98.2 F Pulse Rate 121 H Respiratory Rate 22 H Blood Pressure 95/79 L Pulse Oximetry 90 Oxygen Delivery Intake/Output Intake/Output: Intake & Output 01/19/25 01/20/25 01/21/25 01/22/25 23:59 23:59 23:59 23:59 Intake Total 615.3 1780 600 Output Total 920 2640 400 Balance -304.7 -860 200 Meds/Results Medications: Active Medications Generic Name Dose Route Start Last Admin Trade Name Freq PRN Reason Stop Dose Admin Benzocaine 1 lozenge 01/21/25 12:59 Benzocaine/Menthol (*Bkc) 18 Ea Lozenge PO PRN PRN Sore Throat Digoxin 125 mcg 01/21/25 09:00 01/21/25 11:20 Digoxin Tab 125 Mcg Tablet PO 125 mcg QAM ELLEN Administration Empagliflozin 10 mg 01/20/25 13:15 01/21/25 08:40 Empagliflozin 10 Mg Tablet PO 10 mg DAILY [facility] Administration Metoprolol Tartrate 100 mg 01/22/25 18:00 Metoprolol Tartrate 50 Mg Tab PO Q12H ELLEN Rivaroxaban 20 mg 01/20/25 17:00 01/21/25 17:15 Rivaroxaban 20 Mg Tablet PO 20 mg DAILY@1700 [facility] Administration Sacubitril/Valsartan 1 tab 01/22/25 09:00 Sacubitril/Valsartan 12-13 Mg Tablet PO Q12HR [facility] Radiology Results: ITS Impressions Chest X-Ray 01/21/25 13:15 IMPRESSION: 1. No acute cardiopulmonary disease. 2. Borderline heart size accounting for AP technique. Labs Labs: Laboratory Results - last 24 hr 01/21/25 01/21/25 01/21/25 04:24 13:43 17:50 WBC RBC Hgb Hct MCV MCH MCHC RDW Plt Count MPV Sodium Potassium Chloride Carbon Dioxide Anion Gap BUN Creatinine Estim Creat Clear Calc Estimated GFR Glucose Calcium Total Bilirubin AST ALT Alkaline Phosphatase NT-Pro-B Natriuret Pep 3960 H Total Protein Albumin Urine Opiates Screen Negative Urine Methadone Screen Negative Ur Barbiturates Screen Negative Ur Phencyclidine Scrn Negative Ur Amphetamine Screen Negative U Benzodiazepines Scrn Negative Urine Cocaine Screen Negative U Cannabinoids Screen Negative Influenza A (RT-PCR) Negative Influenza B (RT-PCR) Negative RSV (RT-PCR) Negative SARS-CoV-2 RNA (RT-PCR) Negative 01/22/25 04:03 WBC 12.0 H RBC 4.74 Hgb 14.0 Hct 43.0 MCV 90.7 MCH 29.5 MCHC 32.6 RDW 13.7 Plt Count 263 MPV 10.3 Sodium 137 Potassium 4.5 Chloride 109 H Carbon Dioxide 17 L Anion Gap 11 BUN 24 H Creatinine 1.13 Estim Creat Clear Calc 99 Estimated GFR > 60 Glucose 97 Calcium 8.7 Total Bilirubin 1.4 H AST 55 ALT 49 Alkaline Phosphatase 69 NT-Pro-B Natriuret Pep Total Protein 7.0 Albumin 3.6 Urine Opiates Screen Urine Methadone Screen Ur Barbiturates Screen Ur Phencyclidine Scrn Ur Amphetamine Screen U Benzodiazepines Scrn Urine Cocaine Screen U Cannabinoids Screen Influenza A (RT-PCR) Influenza B (RT-PCR) RSV (RT-PCR) SARS-CoV-2 RNA (RT-PCR)
[2025-01-22] MEDS: SACUBITRIL/VALSARTAN 12-13 MG TABLET 1 TAB PO ×2 (09:00→20:51)
[2025-01-22] MEDS: DIGOXIN TAB 125 MCG TABLET PO (09:00)
[2025-01-22] MEDS: EMPAGLIFLOZIN 10 MG TABLET PO (09:00)
[2025-01-22] MEDS: RIVAROXABAN 20 MG TABLET PO (17:02)
[2025-01-22] MEDS: METOPROLOL TARTRATE 50 MG TAB 100 MG PO (17:02)
[2025-01-22] MEDS: DILTIAZEM HCL 1 EACH PO (18:28)
[2025-01-23] VITALS (18 sets, daily range): BP systolic 99–117; BP diastolic 71–93; PULSE 88–123; RESP 18–20; TEMP 36.2–36.8; O2SAT 97–99
[2025-01-23 05:53] LABS: Hematocrit 42.4 % (42.0-52.0); Hemoglobin 13.9 g/dL (14.0-18.0); Mean Corpuscular HGB Conc 32.8 g/dl (32-36); Mean Corpuscular Hemoglobin 30.1 pg (26-34); Mean Corpuscular Volume 91.8 fl (80-100); Mean Platelet Volume 10.7 fl (7.4-10.4); Platelet Count Result 239 k/mm3 (150-375); Red Blood Count 4.62 M/mm3 (4.6-6.20); Red Cell Distribution Width 13.7 % (11.5-14.5); White Blood Count 9.3 K/mm3 (4.5-10.0)
[2025-01-23] MEDS: METOPROLOL TARTRATE 50 MG TAB 100 MG PO ×2 (06:06→17:03)
[2025-01-23 06:09] LABS: Alanine Aminotransferase 46 U/L (6-50); Albumin Level 3.4 g/dL (3.5-5.1); Alkaline Phosphatase 70 U/L (38-126); Anion Gap 10 mmol/L (4-12); Aspartate Amino Transferase 49 U/L (17-59); Bilirubin,Total 1.2 mg/dL (0.2-1.3); Blood Urea Nitrogen 19 mg/dL (9-20); Calcium 8.6 mg/dL (8.4-10.2); Carbon Dioxide 18 mmol/L (22-30); Chloride 108 mmol/L (98-107); Estimated CRCL calculation 121 ml/min; Estimated Glomerular Filt Rate > 60; Glucose 86 mg/dL (65-110); Potassium 4.3 mmol/L (3.4-5.0); Sodium 136 mmol/L (137-145)
--- NOTE | 2025-01-23 08:27 | PM.IMPN ---
Progress Note: A&P Assessment and Plan (1) PAF (paroxysmal atrial fibrillation): Code(s): I48.0 - Paroxysmal atrial fibrillation Status: Acute Assessment and Plan: New onset. TSH 2.8 Denies alcoholism, drug abuse, excessive caffeine intake Newly diagnosed CHF Untreated JOSEPH and hypertension. [id number] 1 and started Xarelto 20 mg p.o. q.d. Start Aspirin 325 mg daily. Stop Diltiazem drip and Diltiazem 60 mg PO every 6 hours. Started digoxin 125 mcg Reviewed echo ejection fraction 20-25% (2) Hypertension: Code(s): I10 - Essential (primary) hypertension Status: Acute Assessment and Plan: On metoprolol and digoxin (3) JOSEPH (obstructive sleep apnea): Code(s): G47.33 - Obstructive sleep apnea (adult) (pediatric) Status: Acute Assessment and Plan: Will need outpatient sleep study. (4) Heart failure: Code(s): I50.9 - Heart failure, unspecified Status: Acute Assessment and Plan: Newly diagnosed CHF Reviewed echocardiogram, left ventricular ejection fraction 20-25% Started Zandra Tracy BNP 3960 UDS negative Continue Metoprolol tartrate 100 mg p.o. b.i.d. and digoxin 125 mcg p.o. q.d. Continue Xarelto 20 mg p.o. q.d. Subjective Date/time seen: 01/23/25 08:27 Interval history: Pending to receive life vest. Review of Systems Review of Systems: All systems reviewed & are unremarkable except as noted in HPI and below Constitutional: Constitutional: Reports as per HPI, Denies chills, Reports fatigue and Denies fever(s) ENT: Denies dizziness Cardiovascular: Cardiovascular: Reports as per HPI, Denies chest pain, Denies syncope, Denies irregular heart rhythm and Reports dyspnea Respiratory: Respiratory: Reports as per HPI and Reports dyspnea Gastrointestinal: Gastrointestinal: Reports as per HPI and Denies abdominal pain Genitourinary: Genitourinary: Reports as per HPI and Denies dysuria Musculoskeletal: Musculoskeletal: Reports as per HPI Neurologic: Reports as per HPI, Denies dizziness and Denies syncope Endocrine: Endocrine: Reports fatigue Exam Const: General: cooperative, healthy appearing and comfortable Orientation/consciousness: oriented to person, oriented to place and oriented to time Resp: Auscultation: clear to auscultation bilaterally, no crackles, no rales, no rhonchi and no wheezes Cardio: Rate: tachycardic Rhythm: abnormal rhythm Heart sounds: no murmurs Peripheral pulses: dorsalis pedis present Neuro: General: oriented to person, oriented to place and oriented to time Extrem: Right lower extremity: no edema Left lower extremity: no edema Objective Data Vital Signs Vital Signs: Vital Signs - 24 hr 01/22/25 09:00 01/22/25 10:00 01/22/25 12:00 Temperature Pulse Rate 128 H 104 H 114 H Respiratory Rate Blood Pressure Pulse Oximetry Oxygen Delivery 01/22/25 12:00 01/22/25 12:00 01/22/25 14:00 Temperature 97.8 F Pulse Rate 105 H 104 H Respiratory Rate 18 Blood Pressure 99/67 L Pulse Oximetry 99 Oxygen Delivery Room Air 01/22/25 16:00 01/22/25 16:00 01/22/25 16:36 Temperature 97.5 F L Pulse Rate 118 H 112 H Respiratory Rate 20 Blood Pressure 114/86 Pulse Oximetry 98 Oxygen Delivery Room Air 01/22/25 17:02 01/22/25 18:00 01/22/25 20:00 Temperature 98.0 F Pulse Rate 115 H 104 H 105 H Respiratory Rate 18 Blood Pressure 111/71 Pulse Oximetry 99 Oxygen Delivery 01/22/25 20:00 01/22/25 20:40 01/22/25 22:00 Temperature Pulse Rate 92 105 H 105 H Respiratory Rate 18 Blood Pressure Pulse Oximetry 99 Oxygen Delivery Room Air 01/23/25 00:00 01/23/25 00:00 01/23/25 00:00 Temperature 98.3 F Pulse Rate 101 H 100 101 H Respiratory Rate 20 20 Blood Pressure 109/93 H Pulse Oximetry 99 99 Oxygen Delivery Room Air 01/23/25 02:00 01/23/25 04:00 01/23/25 04:00 Temperature 98.2 F Pulse Rate 102 H 103 H 122 H Respiratory Rate 18 Blood Pressure 110/77 Pulse Oximetry 98 Oxygen Delivery 01/23/25 04:00 01/23/25 05:57 01/23/25 06:06 Temperature Pulse Rate 103 H 111 H 123 H Respiratory Rate 18 Blood Pressure Pulse Oximetry 98 Oxygen Delivery Room Air 01/23/25 08:09 Temperature 97.5 F L Pulse Rate 96 Respiratory Rate 20 Blood Pressure 99/79 L Pulse Oximetry 98 Oxygen Delivery Intake/Output Intake/Output: Intake & Output 01/20/25 01/21/25 01/22/25 01/23/25 23:59 23:59 23:59 23:59 Intake Total 615.3 1780 1859 450 Output Total 920 2640 1750 350 Balance -304.7 -860 109 100 Meds/Results Medications: Active Medications Generic Name Dose Route Start Last Admin Trade Name Freq PRN Reason Stop Dose Admin Benzocaine 1 lozenge 01/21/25 12:59 Benzocaine/Menthol (*Bkc) 18 Ea Lozenge PO PRN PRN Sore Throat Digoxin 125 mcg 01/21/25 09:00 01/22/25 09:00 Digoxin Tab 125 Mcg Tablet PO 125 mcg QAM ELLEN Administration Diltiazem HCl 30 mg 01/23/25 09:00 Diltiazem Hcl 30 Mg Tablet PO Q12HR ELLEN Empagliflozin 10 mg 01/20/25 13:15 01/22/25 09:00 Empagliflozin 10 Mg Tablet PO 10 mg DAILY ELLEN Administration Metoprolol Tartrate 100 mg 01/22/25 18:00 01/23/25 06:06 Metoprolol Tartrate 50 Mg Tab PO 100 mg Q12H ELLEN Administration Rivaroxaban 20 mg 01/20/25 17:00 01/22/25 17:02 Rivaroxaban 20 Mg Tablet PO 20 mg DAILY@1700 ELLEN Administration Sacubitril/Valsartan 1 tab 01/22/25 09:00 01/22/25 20:51 Sacubitril/Valsartan 12-13 Mg Tablet PO 1 tab Q12HR ELLEN Administration Radiology Results: ITS Impressions Chest X-Ray 01/21/25 13:15 IMPRESSION: 1. No acute cardiopulmonary disease. 2. Borderline heart size accounting for AP technique. Labs Labs: Laboratory Results - last 24 hr 01/23/25 05:03 WBC 9.3 RBC 4.62 Hgb 13.9 L Hct 42.4 MCV 91.8 MCH 30.1 MCHC 32.8 RDW 13.7 Plt Count 239 MPV 10.7 H Sodium 136 L Potassium 4.3 Chloride 108 H Carbon Dioxide 18 L Anion Gap 10 BUN 19 Creatinine 0.89 Estim Creat Clear Calc 121 Estimated GFR > 60 Glucose 86 Calcium 8.6 Total Bilirubin 1.2 AST 49 ALT 46 Alkaline Phosphatase 70 Total Protein 7.0 Albumin 3.4 L Quality VTE Prophylaxis VTE prophylaxis: pharmacologic ordered Hospitalist MIPS Advance Care Plan I have confirmed that the patient's Advanced Care Plan is present, code status is documented, or surrogate decision maker is listed in patient medical record.: Yes Medication Reconciliation I have utilized all available resources to obtain, update and review the patients current medications (includes all prescriptions, OTC, herbals, cannabis, and nutritional supplements).: Yes
[2025-01-23] MEDS: DIGOXIN TAB 125 MCG TABLET PO (09:50)
[2025-01-23] MEDS: dilTIAZem HCL 30 MG TABLET PO ×2 (09:50→20:15)
[2025-01-23] MEDS: SACUBITRIL/VALSARTAN 12-13 MG TABLET 1 TAB PO ×2 (09:50→20:15)
[2025-01-23] MEDS: EMPAGLIFLOZIN 10 MG TABLET PO (09:50)
--- NOTE | 2025-01-23 16:09 | PCCPR ---
Met Rangel at bedside overview of program given. He verbalized interest and understanding. Asked if he has transportation and does not however takes [employer] to work. Encouraged to discuss with discharge planning if they have transportation resource information.
[2025-01-23] MEDS: RIVAROXABAN 20 MG TABLET PO (17:03)
--- NOTE | 2025-01-23 23:31 | PC.NURSE ---
This patient, Rangel Ulrich, was transferred to [facility] on 01/23/25 at 2330. Personal belongings sent with patient. Report given to MEGAN Urena. Appropriate documentation sent with patient.
[2025-01-24] VITALS (8 sets, daily range): BP systolic 106–115; BP diastolic 75–89; PULSE 54–108; RESP 18–20; TEMP 36.1–37; O2SAT 97–98
[2025-01-24] MEDS: METOPROLOL TARTRATE 50 MG TAB 100 MG PO ×2 (05:03→16:51)
[2025-01-24] MEDS: BENZOCAINE/MENTHOL (*BKC) 18 EA LOZENGE 1 LOZENGE PO (05:38)
--- NOTE | 2025-01-24 08:16 | PM.PNCARD ---
Progress Note: A&P Assessment and Plan (1) PAF (paroxysmal atrial fibrillation): Code(s): I48.0 - Paroxysmal atrial fibrillation Status: Acute Assessment and Plan: New onset. Probably due to untreated JOSEPH and hypertension. [id number] 2. On Xarelto. Rate control on Diltiazem and Metoprolol. HR stable on Metoprolol 100 mg every 12 hours and on Digoxin 125 mcg daily, and Diltiazem 30 mg BID to improve HR control. (2) Hypertension: Code(s): I10 - Essential (primary) hypertension Status: Acute Assessment and Plan: Stable. (3) JOSEPH (obstructive sleep apnea): Code(s): G47.33 - Obstructive sleep apnea (adult) (pediatric) Status: Acute Assessment and Plan: Will need outpatient sleep study. 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 Started Metoprolol and Entresto and Jardiance. Discuss Life Vest and ordered, but he is unsure if he wants it. Patient waiting to be instructed on Life Vest, then he may d/c home from cardiology standpoint and f/u with me in 1-2 weeks. Will sign off and please call with any questions. Subjective Date/time seen: 01/24/25 08:16 Interval history: Denies chest pain. States breathing is better. Has hoarse voice. Exam Const: General: cooperative, healthy appearing and comfortable Orientation/consciousness: oriented to person, oriented to place and oriented to time Resp: Auscultation: clear to auscultation bilaterally, no crackles, no rales, no rhonchi and no wheezes Cardio: Rate: regular rate Rhythm: abnormal rhythm Heart sounds: no murmurs Peripheral pulses: dorsalis pedis present Neuro: General: oriented to person, oriented to place and oriented to time Extrem: Right lower extremity: no edema Left lower extremity: no edema Objective Data Vital Signs Vital Signs: Vital Signs - 24 hr 01/23/25 09:50 01/23/25 10:00 01/23/25 11:35 Temperature 97.1 F L Pulse Rate 103 H 93 111 H Respiratory Rate 20 Blood Pressure 104/71 Pulse Oximetry 99 Oxygen Delivery 01/23/25 12:00 01/23/25 12:00 01/23/25 14:00 Temperature Pulse Rate 111 H 101 H 89 Respiratory Rate 20 Blood Pressure Pulse Oximetry 99 Oxygen Delivery Room Air 01/23/25 16:00 01/23/25 16:00 01/23/25 16:22 Temperature 98.0 F Pulse Rate 89 97 102 H Respiratory Rate 20 20 Blood Pressure 102/84 Pulse Oximetry 99 99 Oxygen Delivery Room Air 01/23/25 17:03 01/23/25 18:00 01/23/25 19:49 Temperature 98.2 F Pulse Rate 98 97 88 Respiratory Rate 20 Blood Pressure 117/80 Pulse Oximetry 97 Oxygen Delivery 01/23/25 20:00 01/23/25 20:00 01/24/25 00:00 Temperature Pulse Rate 93 94 Respiratory Rate Blood Pressure Pulse Oximetry Oxygen Delivery Room Air 01/24/25 00:44 01/24/25 04:00 01/24/25 05:03 Temperature 98.6 F Pulse Rate 61 98 108 H Respiratory Rate 18 Blood Pressure 107/89 Pulse Oximetry 97 Oxygen Delivery 01/24/25 06:00 Temperature 98.3 F Pulse Rate 61 Respiratory Rate 20 Blood Pressure 106/75 Pulse Oximetry 98 Oxygen Delivery Intake/Output Intake/Output: Intake & Output 01/21/25 01/22/25 01/23/25 01/24/25 23:59 23:59 23:59 23:59 Intake Total 1780 1859 1910 550 Output Total 2640 1750 1200 Balance -860 109 710 550 Meds/Results Medications: Active Medications Generic Name Dose Route Start Last Admin Trade Name Freq PRN Reason Stop Dose Admin Benzocaine 1 lozenge 01/21/25 12:59 01/24/25 05:38 Benzocaine/Menthol (*Bkc) 18 Ea Lozenge PO 1 lozenge PRN PRN Administration Sore Throat Digoxin 125 mcg 01/21/25 09:00 01/23/25 09:50 Digoxin Tab 125 Mcg Tablet PO 125 mcg QAM ELLEN Administration Diltiazem HCl 30 mg 01/23/25 09:00 01/23/25 20:15 Diltiazem Hcl 30 Mg Tablet PO 30 mg Q12HR ELLEN Administration Empagliflozin 10 mg 01/20/25 13:15 01/23/25 09:50 Empagliflozin 10 Mg Tablet PO 10 mg DAILY ELLEN Administration Metoprolol Tartrate 100 mg 01/22/25 18:00 01/24/25 05:03 Metoprolol Tartrate 50 Mg Tab PO 100 mg Q12H ELLEN Administration Rivaroxaban 20 mg 01/20/25 17:00 01/23/25 17:03 Rivaroxaban 20 Mg Tablet PO 20 mg DAILY@1700 ELLEN Administration Sacubitril/Valsartan 1 tab 01/22/25 09:00 01/23/25 20:15 Sacubitril/Valsartan 12-13 Mg Tablet PO 1 tab Q12HR ELLEN Administration Radiology Results: ITS Impressions Chest X-Ray 01/21/25 13:15 IMPRESSION: 1. No acute cardiopulmonary disease. 2. Borderline heart size accounting for AP technique.
[2025-01-24] MEDS: DIGOXIN TAB 125 MCG TABLET PO (08:21)
[2025-01-24] MEDS: SACUBITRIL/VALSARTAN 12-13 MG TABLET 1 TAB PO (08:22)
[2025-01-24] MEDS: dilTIAZem HCL 30 MG TABLET PO (08:22)
[2025-01-24] MEDS: EMPAGLIFLOZIN 10 MG TABLET PO (08:22)
[2025-01-24] MEDS: RIVAROXABAN 20 MG TABLET PO (16:51)
--- NOTE | 2025-01-24 17:08 | P.DS_ITS ---
DS: Admitting Diagnosis Discharge Date 01/24/2025 Admitting Diagnosis Chest congestion DS: Discharge Diagnosis Discharge Diagnosis (1) PAF (paroxysmal atrial fibrillation): Code(s): I48.0 - Paroxysmal atrial fibrillation Status: Acute Assessment and Plan: New onset. TSH 2.8 Denies alcoholism, drug abuse, excessive caffeine intake Newly diagnosed CHF Untreated JOSEPH and hypertension. [id number] 1 and started Xarelto 20 mg p.o. q.d. Start Aspirin 325 mg daily. Stop Diltiazem drip and Diltiazem 60 mg PO every 6 hours. Started digoxin 125 mcg Reviewed echo ejection fraction 20-25% (2) Hypertension: Code(s): I10 - Essential (primary) hypertension Status: Acute Assessment and Plan: On metoprolol and digoxin (3) JOSEPH (obstructive sleep apnea): Code(s): G47.33 - Obstructive sleep apnea (adult) (pediatric) Status: Acute Assessment and Plan: Will need outpatient sleep study. (4) Heart failure: Code(s): I50.9 - Heart failure, unspecified Status: Acute Assessment and Plan: Newly diagnosed CHF Reviewed echocardiogram, left ventricular ejection fraction 20-25% Started Zandra Tracy BNP 3960 UDS negative Continue Metoprolol tartrate 100 mg p.o. b.i.d. and digoxin 125 mcg p.o. q.d. Continue Xarelto 20 mg p.o. q.d. DS: Summary Hospital Course Hospital Course: Patient is a 49-year-old male with no significant past medical history is admitted due to chest congestion and pressure for past it few weeks. Patient reported yearly morning he woke up and was not able to breathe. Patient does not clearly denies any history of anxiety although it never been diagnosed. He reports the chest congestion, cough and bringing up sputum sometime. Patient denies any drug abuse or alcohol. His last doctor visit attended 2 years ago. Patient endorse shortness of breath while walking and sometimes even at rest. Patient works at a warehouse. Patient has JOSEPH but denies using CPAP. Patient denies any history of AFib. Patient was admitted in the ED due to chest pain but there was no elevation of troponin. EKG shows shows left anterior fascicular block with new onset of AFib. Patient was started on Cardizem drip and was admitted to IMU. Pertinent ED lab: WBC 9, hemoglobin 13.8, platelet 238, sodium 136, potassium 4.3, creatinine 0.94, BUN 26, bilirubin 1.6 Troponin negative Chest x-ray possible cardiomegaly Patient is admitted in the setting of new onset of AFib,And cardiomegaly. Echo ordered and Cardiology was consulted. Patient Cardizem drip has been stopped and started on diltiazem 30 mg p.o. q.6 hours, Entresto, empagliflozin, rivaroxaban and metoprolol 25 mg p.o. q.6 hours. Patient HbA1c 5.8. Ordered lipid panel. Will discuss with Cardiology after the echo results for continuation of diltiazem. Cardiology was consulted. His echocardiogram shows 20-25% (please refer to full report). Patient started on GDMT. Patient also received LifeVest. Patient has a new onset of AFib. Patient discharged with Xarelto 20 mg p.o. q.d., Jardiance 10 mg p.o. q.d., digoxin 125 mcg p.o. q.d., Entresto 12 13 p.o. q.d., metoprolol tartrate 100 mg p.o. b.i.d., diltiazem 30 mg p.o. b.i.d.. No evidence of diabetic, drug abuse, alcoholism. Status at Discharge Cognitive/behavioral status at discharge: Stable Time Spent with Patient Time attestation: Total time spent providing and/or coordinating discharge services: 45 minute Exam Const: General: cooperative, healthy appearing and comfortable Orientation/consciousness: oriented to person, oriented to place and oriented to time Resp: Auscultation: clear to auscultation bilaterally, no crackles, no rales, no rhonchi and no wheezes Cardio: Rate: tachycardic Rhythm: abnormal rhythm Heart sounds: no murmurs Peripheral pulses: dorsalis pedis present Neuro: General: oriented to person, oriented to place and oriented to time Extrem: Right lower extremity: no edema Left lower extremity: no edema DS: Data Imaging Radiologist's impression: ITS Impressions Chest X-Ray 01/20/25 05:27 Impression: Clear lungs. Probable cardiomegaly. Chest X-Ray 01/21/25 13:15 IMPRESSION: 1. No acute cardiopulmonary disease. 2. Borderline heart size accounting for AP technique. ECHO:Left ventricular systolic function is severely reduced, estimated at 20-25%. Discharge Plan Discharge Attending physician on discharge: Emile Monaco Consulting providers: Ranjit Mackey Discharging Clinician: Emile Monaco Patient Disposition: Home, Self-Care Activity: as tolerated Diet: heart healthy Discharge Instructions: Advised the importance of medication compliance and following up with Cardiology. Patient EF is 20-25%, high risk of arrhythmias,advised to wear lifevest Please follow up with PCP in a week upon discharge Check blood pressure 1 to 2 times a day. Record and bring into your doctor for review. Call your doctor if your blood pressure is greater than 180/110 or less than 90/45. Walk with cane or other assist device. Take precautions to avoid falls. Rise slowly from a lying or sitting position. Pause before standing or walking. Contact your doctor or call 911 and come to the Emergency Room if you have any type of trauma, lightheadedness with standing or other worrisome symptoms. Avoid NSAIDs (ibuprofen, naproxen, Aleve). Tylenol is safe to take. Follow-up with your primary care provider in 1-2 weeks. Please call for appoint ment. Follow-up with Cardiology in 2-4 weeks. Please call for an appointment. Thank you for using [facility] for your health care needs. Patient Instructions: Antibiotic Form, Metoprolol (By mouth), Diltiazem (By mouth), Rivaroxaban (By mouth), Empagliflozin (By mouth), Sacubitril/Valsartan (By mouth), Heart Failure (DC), A-fib (Atrial Fibrillation) (DC), Sleep Apnea (GEN), Chronic Hypertension (DC) Patient Language: Mauritanian Stand Alone Forms: General Discharge Information Follow-up/Referrals: Ranjit Mackey, DO [Physician] - Discharge Medications: New Jardiance 10 mg Tablet 10 mg PO DAILY Qty: 30 0RF digoxin 125 mcg (0.125 mg) Tablet 125 mcg PO QAM Qty: 30 0RF sacubitril-valsartan [Entresto] 24-26 mg Tablet 1 tab PO Q12HR Qty: 30 0RF diltiazem HCl 30 mg Tablet 30 mg PO Q12HR Qty: 60 0RF Xarelto 20 mg Tablet 20 mg PO DAILY@1700 Qty: 30 0RF metoprolol tartrate 50 mg Tablet 100 mg PO Q12H Qty: 60 0RF No Action No Home Medications Date of admission: 01/21/25 10:51 Primary Care Provider: UNKNOWN,DOCTOR Admitting Provider: Ericka Soliz Attending physician on admission: Ericka Soliz Condition: Stable Hospitalist MIPS Heart Failure (Qualifier) Patient has current or prior documentation of LVEF less than or equal to 40%, or mod/servere depressed LVSF?: Yes IF NO, STOP HERE If Yes, Heart Failure (Qualifier) Patient was prescribed or already taking an Angiotensin-Converting Enzyme (LOLITA) Inhibitor, or Antiotensin Receptor Cee (ARB): Yes Patient was prescribed or already taking bisoprolol, carvedilol, or sustained release metoprolol succinate: Yes
--- NOTE | 2025-01-24 19:12 | PC.NURSE ---
This nurse talked to patient about his discharge and went over paperwork with patient. Told patient to call once his ride arrived. Pt walked off unit with his IV still in place and did not tell us that he was leaving. Attempted to call patient several times with no answer. mushroom growing supervisor made aware of situation.
--- NOTE | 2025-01-25 08:19 | PC.NURSE ---
Attempted to call patient today regarding possible IV access at discharge. No answer and unable to leave voicemail (not set up). Automotive Specialty Technician notified.
== END 2025-01-24 17:10 | disposition home or self-care (01) | DRG 201 ==
LOC: ANHED 05:09 → ANHIMU 06:31 → ANH3MEDSUR 01-24 13:38 → ANHIMU 01-26 11:22
PROVIDERS: Admitting Provider Hospitalist; Emergency Provider Emergency Medicine; Visit Provider General Practice
DX: I48.0 Paroxysmal atrial fibrillation (principal); I44.4 Left anterior fascicular block; R07.9 Chest pain, unspecified; G47.33 Obstructive sleep apnea (adult) (pediatric); I50.20 Unspecified systolic (congestive) heart failure; I11.0 Hypertensive heart disease with heart failure; I43 Cardiomyopathy in diseases classified elsewhere; Z20.822 Contact with and (suspected) exposure to COVID-19; Z28.21 Immunization not carried out because of patient refusal
CPT/HCPCS: 36415; 71045; 80053; 80061; 80307; 81001; 83036; 83735; 83880; 84100; 84443; 84484; 85025; 85027; 85610; 85730; 87637; 93005; 96365; 96366; 96376; 99285; A9270; C8929; G0378; Q9957